=== PATIENT | male | born 2000 | race Caucasian/White ===

== ENCOUNTER → 2020-01-21 08:17 | Outpatient (BNVA) | payer MEDICAID, SELFPAY | PROVIDERS: Visit Provider Psychiatry & Neurology Psychiatry | DX: F60.3 Borderline personality disorder (principal); F43.12 Post-traumatic stress disorder, chronic; F12.20 Cannabis dependence, uncomplicated; F10.20 Alcohol dependence, uncomplicated | CPT/HCPCS: 99204 ==

== ENCOUNTER → 2020-02-11 10:18 | Outpatient (BNVA) | payer MEDICAID, SELFPAY | PROVIDERS: Visit Provider Psychiatry & Neurology Psychiatry | DX: F10.20 Alcohol dependence, uncomplicated (principal); F12.20 Cannabis dependence, uncomplicated; F43.12 Post-traumatic stress disorder, chronic; F60.3 Borderline personality disorder | CPT/HCPCS: 99213 ==

== ENCOUNTER → 2020-05-05 07:44 | Outpatient (BNVA) | payer MEDICAID, SELFPAY | PROVIDERS: Visit Provider Psychiatry & Neurology Psychiatry | DX: F43.12 Post-traumatic stress disorder, chronic (principal); F10.20 Alcohol dependence, uncomplicated; F12.20 Cannabis dependence, uncomplicated; F60.3 Borderline personality disorder | CPT/HCPCS: 99213 ==

== ENCOUNTER → 2020-05-30 10:35 | Outpatient (BNVA) | payer MEDICAID, SELFPAY | PROVIDERS: Visit Provider Nurse Practitioner | DX: J02.0 Streptococcal pharyngitis (principal); J02.9 Acute pharyngitis, unspecified; L30.9 Dermatitis, unspecified; F17.290 Nicotine dependence, other tobacco product, uncomplicated | CPT/HCPCS: 87880 ==

== ENCOUNTER 2020-07-09 00:35 | Emergency (ER) | payer MEDICAID, SELFPAY ==
[2020-07-09 00:39] VITALS: BP 133/74; PULSE 104; RESP 18; TEMP 36.4; O2SAT 95; BMI 29.8
[2020-07-09] MEDS: lidocaine 1% INJ 20 mL 5 ML INTRADERMA (00:54)
--- NOTE | 2020-07-09 01:01 | W.ED.WOUNDLC ---
HPI - Wound/Laceration General: Chief Complaint: Wound/Laceration Stated Complaint: GLASS IN FOOT Time Seen by Provider: 07/09/20 00:43 History of Present Illness: HPI narrative: Patient cut the bottom of her right foot with a piece of glass tonight Onset (ago): hour(s) Extremity Location: Right: foot Place: home Patient tetanus UTD: Yes Context: accidental Associated symptoms: Reports no associated symptoms Treatments prior to arrival: bandage Review of Systems Skin/Breast: Reports: other (Laceration bottom right foot cut on a piece of glass glass piece was intact it was in the yard. Was clean tetanus is up-to-date.) PFSH ED PFSH: Social History Smoking and tobacco status: current every day smoker e-cigarettes E-Cigarette Details: vaporizer device E-cig/vape details: 1 bottle/day- 36 mL/day Quit status (tobacco): has tried quititng Number of times tried to quit tobacco: 2 Second hand smoke exposure: No Smoking risk assessment/counseling performed?: Yes Tobacco counseling given: counseling >3 minutes Physical Exam Skin: NARRATIVE SKIN EXAM: Has superficial laceration the bottom of the right foot no active bleeding no piece of glass observed inside the wound wound irrigated and cleaned. Course Vital Signs: Vital signs: Vital Signs Temperature 97.5 F L 07/09/20 00:39 Pulse Rate 104 H 07/09/20 00:39 Respiratory Rate 18 07/09/20 00:39 Blood Pressure 133/74 07/09/20 00:39 Pulse Oximetry 95 07/09/20 00:39 Discharge Plan Discharge Patient Disposition: Home Clinical Impression: Laceration Condition: Stable Prescriptions: No Action loratadine [Claritin] 10 mg tablet 10 mg PO DAILY RF: 0 Latuda 40 mg tablet 40 mg PO DAILY Qty: 30 RF: 2 prazosin 2 mg capsule 2 mg PO .HS Qty: 30 RF: 2 azithromycin 250 mg tablet See Rx Instructions PO .COMPLEX Qty: 6 RF: 0 triamcinolone acetonide 0.1 % cream 1 applic TOPICAL BID Qty: 80 RF: 0 Discharge Orders: Discharge Order (Routine); Ordered 07/09/20 Ordered By: Al Sidhu Discharge Diet: Usual diet Discharge Activity: Resume usual activity Patient Instructions: Laceration (ED) Activity Restrictions/Additional Instructions: 0 for signs of infection keep dressing on an [place] bandage on for next 24 hours can apply bacitracin are Neosporin to the wound if needed. 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
== END 2020-07-09 01:26 | disposition home or self-care (01) ==
PROVIDERS: Emergency Provider Nurse Practitioner Family
DX: S91.311A Laceration without foreign body, right foot, initial encounter (principal); F17.290 Nicotine dependence, other tobacco product, uncomplicated; W25.XXXA Contact with sharp glass, initial encounter
CPT/HCPCS: 12345; 99281; 99282

== ENCOUNTER → 2020-12-16 08:41 | Outpatient (BNVA) | payer MEDICAID, SELFPAY | PROVIDERS: Visit Provider Psychiatry & Neurology Psychiatry | DX: F43.12 Post-traumatic stress disorder, chronic (principal); F60.3 Borderline personality disorder; F10.20 Alcohol dependence, uncomplicated; F12.20 Cannabis dependence, uncomplicated | CPT/HCPCS: 99213 ==

== ENCOUNTER → 2021-01-27 08:03 | Outpatient (BNVA) | payer MEDICAID, SELFPAY | PROVIDERS: Visit Provider Psychiatry & Neurology Psychiatry | DX: F43.12 Post-traumatic stress disorder, chronic (principal); F10.20 Alcohol dependence, uncomplicated; F12.20 Cannabis dependence, uncomplicated; F60.3 Borderline personality disorder | CPT/HCPCS: 99214 ==

== ENCOUNTER 2021-08-28 11:34 | Emergency (ER) | payer MEDICAID, SELFPAY ==
--- NOTE | 2021-08-28 12:06 | XR_ITS ---
WS: [id number] Exam: XR chest 1V portable [id number] Date/Time of Exam: 08/28/2021 12:22 PM Reason For Exam: cough and fever Comparison 07/27/2019 Findings: The lungs are clear and fully expanded. Costophrenic angles are sharp. No infiltrates. Bronchovascula r relief appears normal. Cardiac silhouette is unremarkable. Bony elements are intact. XR/XR chest 1V portable [id number] IMPRESSION: Unremarkable chest radiograph.
[2021-08-28 12:15] VITALS: BP 117/73; PULSE 82; RESP 16; TEMP 37.1; O2SAT 97; BMI 34.7
--- NOTE | 2021-08-28 16:18 | W.ED.URI ---
HPI - URI/Sore Throat General: Chief Complaint: Upper Respiratory Infection Stated Complaint: TROUBLE BREATHING/COUGH/FEVER/N,V Time Seen by Provider: 08/28/21 15:39 History of Present Illness: HPI Narrative: Patient is a 20-year-old male comes to the ED with upper respiratory symptoms. His symptoms started approximately 3 days ago when he is having nasal drainage/congestion along with a productive cough. Reports a green sputum. He also reports a fever, body aches, nausea and emesis. He says his nausea and vomiting have improved and he does not currently have any nausea at this time. Associated symptoms: Reports fever(s) and nasal congestion; Deny abdominal pain, chills, chest pain, diarrhea, headache(s), nausea or vomiting Review of Systems Const: Reports: fever(s) and body aches; Denies: chills or fatigue Eyes: Denies: change in vision or eye discomfort ENMT: Reports: throat pain, nasal discharge and nasal congestion; Denies: odynophagia Card: Denies: chest pain, palpitations, edema, swelling of feet/ankles, dyspnea on exertion or orthopnea Resp: Reports: dyspnea and productive cough; Denies: non-productive cough GI: Denies: abdominal pain, nausea, vomiting, diarrhea, constipation or hematochezia : Denies: flank pain, difficulty urinating, dysuria or hematuria Musc: Denies: neck pain, back pain or extremity swelling Skin/Breast: Denies: rash or new lesions Neuro: Denies: headache(s), numbness in extremities or weakness in extremities PFS ED PFSH: Social History Smoking and tobacco status: current every day smoker e-cigarettes E-Cigarette Details: vaporizer device E-cig/vape details: 1 bottle/day- 36 mL/day Quit status (tobacco): has tried quititng Number of times tried to quit tobacco: 2 Second hand smoke exposure: No Smoking risk assessment/counseling performed?: Yes Tobacco counseling given: counseling >3 minutes Physical Exam Const: COMMON NORMALS: no acute distress, patient oriented x3 and alert GENERAL APPEARANCE: cooperative and comfortable HENMT: COMMON NORMALS: normocephalic HEAD & SCALP: normocephalic MOUTH: Normal oral and palatal mucosa present THROAT: posterior oropharynx normal and uvula midline Eye: COMMON NORMALS: Equal, round and reactive pupils present PUPIL: Yes Equal, round and reactive pupils present Neck/C-Spine: COMMON NORMALS: supple GENERAL: Yes normal visual inspection Resp: COMMON NORMALS: normal respiratory effort, No retractions, No use of accessory muscles and clear to auscultation bilaterally AUSCULTATION: clear to auscultation bilaterally and wheezes expiratory wheezes (mild throughout bilaterally) Cardio: COMMON NORMALS: regular rate, regular rhythm, S1 normal heart sound present, S2 normal heart sound present, No gallops present (Cardio), No clicks present (Cardio), No murmurs present (Cardio) and Peripheral pulses 2+ throughout RATE: regular rate RHYTHM: regular rhythm HEART SOUNDS: S1 normal heart sound present and S2 normal heart sound present PERIPHERAL PULSES: Peripheral pulses 2+ throughout GI: COMMON NORMALS: Normal to inspection, nondistended, normoactive bowel sounds present, Soft to palpation, non-tender and no masses PALPATION: Yes Soft to palpation : COMMON NORMALS: Yes no CVA tenderness BLADDER/KIDNEY EXAM: Yes no CVA tenderness Back/Pelvis: COMMON NORMALS: no CVA tenderness Extremity: COMMON NORMALS: normal to inspection Neuro: COMMON NORMALS: patient oriented x3 and moves all extremities SENSORIUM/ORIENTATION: Yes alert Skin: GENERAL SKIN EXAM: dry skin Course Vital Signs: Vital signs: Vital Signs Temperature 98.6 F 08/28/21 16:21 Pulse Rate 91 08/28/21 16:44 Respiratory Rate 18 08/28/21 16:44 Blood Pressure 115/76 08/28/21 16:21 Pulse Oximetry 97 08/28/21 16:44 MDM - URI/Sore Throat MDM Narrative: Medical decision making narrative: Pt is a 20 y/o male with URI symptoms. Vitals stable and pt is afebrile. Pt appears non toxic and in no acute distress. mild expiratory wheezing throughout lungs. cbc, cmp were unremarkable. strep negative, covid negative. chest xray showed no acute findings. pt was given an albuterol breathing treatment here in the ED. pt diagnosed with bronchitis and d/c with prescription for albuterol inhaler, prednisone, azithromycin and zofran. follow up with pcp in 5-7 days for reevaluation. return to ed precautions given. pt understood and agreed with plan. Lab Data: Attestation: I reviewed the patient's lab results. Labs: Lab Results 08/28/21 08/28/21 08/28/21 16:13 16:13 17:09 WBC 7.4 10^3/uL 10^3/ uL (4.0-10.0) RBC 5.05 10^6/uL 10^6 /uL (4.1-5.3) Hgb 16.5 g/dL g/dL (11.7-16.6) Hct 46.8 % % (42.0-52.0) MCV 92.7 fl fl (80-94) MCH 32.7 pg pg (28.0-34.0) MCHC 35.3 g/dL g/dL (30.0-36.0) RDW 12.6 % % (12.1-15.1) Plt Count 285 10^3/cmm 10^3 /cmm (130-400) MPV 9.5 fL fL (7.4-10.4) Neut % (Auto) 64.5 % % Lymph % (Auto) 14.9 % % [place] % (Auto) 15.1 % % Eos % (Auto) 4.0 % % Baso % (Auto) 1.2 % % Neut # (Auto) 4.80 10^3/uL 10^3 /uL (1.8-7.7) Lymph # (Auto) 1.1 10^3/uL 10^3/ uL (0.8-4.8) [place] # (Auto) 1.1 10^3/uL H 10^ 3/uL (0.2-0.9) Eos # (Auto) 0.3 10^3/uL 10^3/ uL (0.0-0.8) Baso # (Auto) 0.1 10^3/uL 10^3/ uL (0.0-0.1) Nucleated RBC % (a uto) 0 % % Nucleated RBCs # 0.0 /100WBC /100W BC Sodium 136 mmol/L mmol/L (136-145) Potassium 3.4 mmol/L L mmol /L (3.5-5.1) Chloride 98 mmol/L mmol/L (98-107) Carbon Dioxide 26 mmol/L mmol/L (22-29) Anion Gap 15.4 (5-19) BUN 8 mg/dL mg/dL (6-20) Creatinine 0.8 mg/dL mg/dL (0.7-1.2) GFR Calculation 120.9 mL/min mL/m in (90-130) Glucose 141 mg/dL H mg/dL (65-115) Calculated Osmolal ity 283 mOsm/kg L mOs m/kg (285-295) Calcium 9.1 mg/dL mg/dL (8.5-10.5) Total Bilirubin 0.7 mg/dL mg/dL (0.15-1.2) AST 16 U/L U/L (0-40) ALT 26 U/L U/L (0-41) Alkaline Phosphata se 94 IU/L IU/L (40-130) Total Protein 7.7 g/dL g/dL (6.6-8.7) Albumin 4.5 g/dL g/dL (3.5-5.2) Globulin 3.2 g/dL g/dL (1.3-4.6) Lipase 20 U/L U/L (13-60) SARS-CoV-2 Ag (Rap id) Group A Strep Rapi d Negative (Negative) 08/28/21 17:09 WBC RBC Hgb Hct MCV MCH MCHC RDW Plt Count MPV Neut % (Auto) Lymph % (Auto) [place] % (Auto) Eos % (Auto) Baso % (Auto) Neut # (Auto) Lymph # (Auto) [place] # (Auto) Eos # (Auto) Baso # (Auto) Nucleated RBC % (a uto) Nucleated RBCs # Sodium Potassium Chloride Carbon Dioxide Anion Gap BUN Creatinine GFR Calculation Glucose Calculated Osmolal ity Calcium Total Bilirubin AST ALT Alkaline Phosphata se Total Protein Albumin Globulin Lipase SARS-CoV-2 Ag (Rap id) Negative (Negative) Group A Strep Rapi d Imaging Data^: CXR: Attestation: I personally reviewed and interpreted this imaging study as follows: Radiologist's impression: [address] [address] XRay Report Signed Patient: Jose Garcia Unit #: [id number] : 2000 Age/Sex: 20 / M ADM Date: 08/28/21 Loc: ER Room/Bed: Attending Dr: Ordering Provider/Ordering MD: Gumaro Dhaliwal Date of Service: 08/28/21 Procedure(s): XR chest 1V portable [id number] Accession Number(s): [id number] Report Number: [id number] WS: [id number] Exam: XR chest 1V portable [id number] Date/Time of Exam: 08/28/2021 12:22 PM Reason For Exam: cough and fever Comparison 07/27/2019 Findings: The lungs are clear and fully expanded. Costophrenic angles are sharp. No infiltrates. Bronchovascular relief appears normal. Cardiac silhouette is unremarkable. Bony elements are intact. XR/XR chest 1V portable [id number] IMPRESSION: Unremarkable chest radiograph. Dictated By: Humza Shepherd DO Signed By: Humza Shepherd DO Signed Date/Time: 08/28/21 1233 DD/ 1233 Discharge Plan Discharge Patient Disposition: Home Clinical Impression: Bronchitis Condition: Stable Prescriptions: New albuterol sulfate 90 mcg/actuation HFA aerosol inhaler 2 inh inhalation Q6H PRN (Reason: shortness of breath or wheezing) Qty: 8.5 RF: 0 Medrol (Gerard) 4 mg tablets,dose pack See Rx Instructions .ROUTE .COMPLEX Qty: 21 RF: 0 azithromycin 250 mg tablet See Rx Instructions .ROUTE .COMPLEX Qty: 6 RF: 0 Zofran 4 mg tablet 4 mg PO Q8H PRN (Reason: nausea and vomiting) Qty: 10 RF: 0 Tessalon Perles 100 mg capsule 100 mg PO TID PRN (Reason: cough) Qty: 10 RF: 0 No Action loratadine [Claritin] 10 mg tablet 10 mg PO DAILY RF: 0 B-complex with vitamin C Tablet Extended Release 1 tab PO DAILY RF: 0 triamcinolone acetonide 0.1 % cream 1 applic TOPICAL BID Qty: 80 RF: 0 duloxetine [Cymbalta] 60 mg capsule,delayed release(DR/EC) 60 mg PO DAILY Qty: 30 RF: 2 prazosin 2 mg capsule 4 mg PO .HS Qty: 60 RF: 2 ondansetron 4 mg tablet,disintegrating 4 mg PO Q6H PRN (Reason: nausea and vomiting) Qty: 12 RF: 0 Discharge Orders: Discharge ED (Routine); Ordered 08/28/21 Ordered By: Gumaro Dhaliwal Discharge Diet: Regular Discharge Activity: Increase activity as tolerated Patient Instructions: Acute Bronchitis (ED) Activity Restrictions/Additional Instructions: Follow up with PCP in 7-10 days for reevaluation. Take medications as prescribed. Drink plenty of fluids. Take OTC tylenol or motrin for fevers. Return to ED if worsening symptoms. 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
[2021-08-28 16:21] VITALS: BP 115/76; PULSE 81; TEMP 37; O2SAT 99
[2021-08-28 16:24] LABS: Basophils # 0.1 10^3/uL (0.0-0.1); Basophils % 1.2 %; Eosinophils # 0.3 10^3/uL (0.0-0.8); Hematocrit 46.8 % (42.0-52.0); Hemoglobin 16.5 g/dL (11.7-16.6); Lymphocytes # 1.1 10^3/uL (0.8-4.8); Lymphocytes % 14.9 %; Mean Corpuscular HGB Conc 35.3 g/dL (30.0-36.0); Mean Corpuscular Hemoglobin 32.7 pg (28.0-34.0); Mean Corpuscular Volume 92.7 fl (80-94); Mean Platelet Volume 9.5 fL (7.4-10.4); Monocytes # 1.1 10^3/uL (0.2-0.9); Monocytes % 15.1 %; Neutrophils % 64.5 %; Nucleated Red Blood Cells % 0 %; Platelet Count 285 10^3/cmm (130-400); Red Blood Count 5.05 10^6/uL (4.1-5.3); Red Cell Distribution Width 12.6 % (12.1-15.1); White Blood Count 7.4 10^3/uL (4.0-10.0)
[2021-08-28 16:44] VITALS: PULSE 91; RESP 18; O2SAT 97
[2021-08-28 16:50] LABS: Alanine Aminotransferase 26 U/L (0-41); Albumin Level 4.5 g/dL (3.5-5.2); Alkaline Phosphatase 94 IU/L (40-130); Anion Gap 15.4 (5-19); Aspartate Amino Transferase 16 U/L (0-40); Blood Urea Nitrogen 8 mg/dL (6-20); Calcium 9.1 mg/dL (8.5-10.5); Carbon Dioxide 26 mmol/L (22-29); Chloride 98 mmol/L (98-107); Globulin 3.2 g/dL (1.3-4.6); Glomerular Filtration Rate 120.9 mL/min (90-130); Glucose 141 mg/dL (65-115); Lipase 20 U/L (13-60); Osmolality Calculated 283 mOsm/kg (285-295); Potassium 3.4 mmol/L (3.5-5.1); Sodium 136 mmol/L (136-145); Total Bilirubin 0.7 mg/dL (0.15-1.2); Total Protein 7.7 g/dL (6.6-8.7)
[2021-08-28] MEDS: albuterol 8 gm MDI 2 PUFF INHALATION (16:50)
[2021-08-28 17:31] LABS: Rapid Strep A Test Negative (Negative)
[2021-08-28 17:52] LABS: SARS Covid-2 Antigen Negative (Negative)
== END 2021-08-28 18:10 | disposition home or self-care (01) ==
PROVIDERS: Emergency Provider Physician Assistant
DX: J40 Bronchitis, not specified as acute or chronic (principal); F17.290 Nicotine dependence, other tobacco product, uncomplicated; Z20.822 Contact with and (suspected) exposure to COVID-19
CPT/HCPCS: 71045; 80053; 83690; 85025; 87081; 87426; 87880; 94640; 99283; J3535

== ENCOUNTER 2022-06-14 11:38 | Emergency (ER) | payer MEDICAID, SELFPAY ==
[2022-06-14 11:47] VITALS: BP 147/73; PULSE 56; RESP 16; TEMP 36.7; O2SAT 97
--- NOTE | 2022-06-14 11:57 | W.ED.EXTPRO ---
HPI - Extremity Problem General: Chief complaint: Extremity Injury, Upper Stated complaint: right arm injury Time Seen by Provider: 06/14/22 11:43 Source: patient Mode of arrival: ambulatory Limitations: no limitations History of Present Illness: Patient is a 21-year-old male presents to ED today with a complaint of right shoulder pain over the past 3 days. Patient states over the past week he has been moving a lot of heavy boxes in his apartment and thinks he may have irritated or strained his shoulder. He does complain of intermittent numbness/tingling to his right upper extremity. Pain seems to be worse with range of motion above shoulder level . Not having any neck pain. He has not noticed any color/temp/swelling to his upper extremity. MD Complaint: joint pain Onset (ago): day(s) (3d ago) Location: right and upper extremity Radiation: distal Exacerbating factors: range of motion Associated symptoms: Deny chest pain or fever(s) Review of Systems Const: Denies: fever(s), chills, body aches, fatigue or malaise Card: Denies: chest pain Resp: Denies: dyspnea GI: Denies: abdominal pain Musc: Reports: joint pain (R shoulder); Denies: neck pain, joint swelling, joint redness or joint warmth Neuro: Reports: sensory changes (intermittent tingling to R arm ); Denies: headache(s) or weakness in extremities PFSH ED PFSH: Social History Smoking and tobacco status: current every day smoker e-cigarettes E-Cigarette Details: vaporizer device E-cig/vape details: 1 bottle/day- 36 mL/day Quit status (tobacco): has tried quititng Number of times tried to quit tobacco: 2 Second hand smoke exposure: No Smoking risk assessment/counseling performed?: Yes Tobacco counseling given: counseling >3 minutes Physical Exam Const: COMMON NORMALS: no acute distress, average body habitus, patient oriented x3, no limitations, alert and well nourished ORIENTATION/CONSCIOUSNESS: Yes awake, Yes oriented to person, Yes oriented to place and Yes oriented to time HENMT: COMMON NORMALS: normocephalic and atraumatic HEAD & SCALP: normocephalic and atraumatic Neck/C-Spine: COMMON NORMALS: full ROM, no lymphadenopathy, supple and no meningeal signs GENERAL: Yes normal visual inspection CERVICAL SPINE: Yes cervical ROM normal, No pain with cervical ROM, No Cervical spine tenderness, No step off deformity, No Paracervical muscle tenderness, No Paracervical spasm and No Trapezius muscle tenderness Chest: COMMONS NORMALS: normal inspection of the chest and normal palpation of entire chest wall Resp: COMMON NORMALS: normal respiratory effort and clear to auscultation bilaterally AUSCULTATION: clear to auscultation bilaterally Cardio: COMMON NORMALS: regular rate and regular rhythm RATE: regular rate RHYTHM: regular rhythm Back/Pelvis: COMMON NORMALS: thoracic and lumbar spine normal to inspection, no thoracic nor lumbar tenderness and thoraco-lumbar ROM normal THORACIC SPINE/UPPER BACK: Yes thoracic ROM normal LUMBAR SPINE/LOWER BACK: Yes lumbar ROM normal Extremity: COMMON NORMALS: normal to inspection, capillary refill normal, no joint enlargement and no clubbing, cyanosis or edema GENERAL: Yes normal exam except as noted RIGHT UPPER EXTREMITY: Yes shoulder joint (TTP overlying posterior shoulder/scapula) Right shoulder: Yes Right shoulder joint ROM exam (full IR/ER; has pain with arc maneuvers; pain past 90 deg flex/abduction) and Yes Right shoulder joint neurovascular exam (normal; he reports sensory as same bilaterally) Neuro: ESTELA COMA SCALE: document GCS findings [place] coma scale eye opening: Spontaneous [place] coma scale verbal response: Orientated [place] coma scale motor response: Obey commands Estela coma scale total score: 15 COMMON NORMALS: patient oriented x3, moves all extremities, no focal motor deficits and no sensory deficits noted SENSORIUM/ORIENTATION: Yes alert, Yes oriented to person, Yes oriented to place and Yes oriented to time MENINGEAL SIGNS: Yes no meningeal signs Skin: COMMON NORMALS: no rashes or lesions noted GENERAL SKIN EXAM: no rashes or lesions noted TRAUMA: no lacerations or abrasions Course Vital Signs: Vital signs: Vital Signs Temperature 98.1 F 06/14/22 11:47 Pulse Rate 56 L 06/14/22 11:47 Respiratory Rate 16 06/14/22 11:47 Blood Pressure 147/73 06/14/22 11:47 Pulse Oximetry 97 06/14/22 11:47 MDM - Extremity (Nontraumatic) Medical Decision Making Patient has not had any direct injury or trauma to the shoulder. I think XRs at this time would be low yield and ultimately would not change much management. He has been using anti-inflammatories at home so I recommend he continue this. Discussed alternating ice and heat we will place him on a Medrol dose pack. I recommend he follow-up with primary care in 2 weeks if symptoms do not seem to be improving. Discharge Plan Discharge Patient Disposition: Home Clinical Impression: Muscle strain of right scapular region Qualifiers: Encounter type: initial encounter Qualified Code(s): S46.911A - Strain of unspecified muscle, fascia and tendon at shoulder and upper arm level, right arm, initial encounter Condition: Stable Prescriptions: New Medrol (Gerard) 4 mg tablets,dose pack See Rx Instructions .ROUTE .COMPLEX Qty: 21 0RF Rx Instructions: orally per package directions No Action loratadine [Claritin] 10 mg tablet 10 mg PO DAILY 0RF B-complex with vitamin C Tablet Extended Release 1 tab PO DAILY 0RF triamcinolone acetonide 0.1 % cream 1 applic TOPICAL BID Qty: 80 0RF duloxetine [Cymbalta] 60 mg capsule,delayed release(DR/EC) 60 mg PO DAILY Qty: 30 2RF prazosin 2 mg capsule 4 mg PO .HS Qty: 60 2RF ondansetron 4 mg tablet,disintegrating 4 mg PO Q6H PRN (Reason: nausea and vomiting) Qty: 12 0RF Rx Instructions: 340b please albuterol sulfate 90 mcg/actuation HFA aerosol inhaler 2 inh inhalation Q6H PRN (Reason: shortness of breath or wheezing) Qty: 8.5 0RF Medrol (Gerard) 4 mg tablets,dose pack See Rx Instructions .ROUTE .COMPLEX Qty: 21 0RF Rx Instructions: orally per package directions azithromycin 250 mg tablet See Rx Instructions .ROUTE .COMPLEX Qty: 6 0RF Rx Instructions: take 500 mg today (day 1), then 250 mg for 4 days (days 2-5) Zofran 4 mg tablet 4 mg PO Q8H PRN (Reason: nausea and vomiting) Qty: 10 0RF Tessalon Perles 100 mg capsule 100 mg PO TID PRN (Reason: cough) Qty: 10 0RF Discharge Orders: Discharge ED (Routine); Ordered 06/14/22 Ordered By: [place] Daily Coding 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
== END 2022-06-14 12:07 | disposition home or self-care (01) ==
PROVIDERS: Emergency Provider Physician Assistant
DX: S46.911A Strain of unspecified muscle, fascia and tendon at shoulder and upper arm level, right arm, initial encounter (principal); F17.290 Nicotine dependence, other tobacco product, uncomplicated; X50.0XXA Overexertion from strenuous movement or load, initial encounter
CPT/HCPCS: 99283

== ENCOUNTER 2023-08-25 22:22 | Emergency (ER) | payer MEDICAID, SELFPAY ==
[2023-08-25 22:26] VITALS: BP 124/75; PULSE 65; RESP 16; TEMP 36.6; O2SAT 98; BMI 27.9
[2023-08-25 23:09] LABS: Basophils # 0.1 10^3/uL (0.0-0.1); Basophils % 0.9 %; Eosinophils # 0.3 10^3/uL (0.0-0.8); Eosinophils % 3.5 %; Hematocrit 42.7 % (37-53); Lymphocytes # 3.2 10^3/uL (0.8-4.8); Lymphocytes % 32.6 %; Mean Corpuscular HGB Conc 36.1 g/dL (30-55); Mean Corpuscular Volume 91.4 fl (82-101); Mean Platelet Volume 9.6 fL (7.4-10.4); Monocytes # 0.9 10^3/uL (0.2-0.9); Monocytes % 9.2 %; Neutrophils # 5.19 10^3/uL (1.8-7.7); Neutrophils % 53.5 %; Nucleated Red Blood Cells % 0 %; Platelet Count 325 10^3/cmm (157-399); Red Blood Count 4.67 10^6/uL (3.85-5.65); White Blood Count 9.71 10^3/uL (3.29-11.43)
--- NOTE | 2023-08-25 23:11 | W.ED.NAVMDI ---
HPI - Nausea/Vomiting/Diarrhea General: Chief complaint: Nausea/Vomiting/Diarrhea Stated complaint: n/v Time Seen by Provider: 08/25/23 22:41 Source: patient Mode of arrival: ambulatory Limitations: no limitations History of Present Illness: Patient reports to the emergency department today for evaluation treatment of multiple episodes of vomiting starting earlier this morning. Patient reports it is possible he got some bad food and suspects the possibility of foodborne illness causing his symptoms. Patient reports 4-5 episodes of vomiting starting approximately 5 AM but resolving around 2 PM this afternoon. He had no diarrhea. No fever. No other respiratory symptoms similar to COVID. No other similarly ill to his knowledge. 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 Review of Systems General: Reports: 10 or more systems reviewed and unremarkable except in HPI and below PFSH ED PFSH: Social History Smoking and tobacco status: current every day smoker e-cigarettes E-Cigarette Details: vaporizer device E-cig/vape details: 1 bottle/day- 36 mL/day Quit status (tobacco): has tried quititng Number of times tried to quit tobacco: 2 Second hand smoke exposure: No Smoking risk assessment/counseling performed?: Yes Tobacco counseling given: counseling >3 minutes Physical Exam Const: COMMON NORMALS: no acute distress, patient oriented x3 and alert HENMT: COMMON NORMALS: normocephalic, atraumatic, hearing grossly normal bilaterally and moist oral mucous membranes HEAD & SCALP: normocephalic and atraumatic Eye: COMMON NORMALS: Equal, round and reactive pupils present, EOMs intact bilaterally and conjunctivae normal CONJUNCTIVA: Yes conjunctivae normal PUPIL: Yes Equal, round and reactive pupils present Neck/C-Spine: COMMON NORMALS: full ROM and no JVD Lymph: LYMPHATIC: no lymphadenopathy noted Resp: COMMON NORMALS: normal respiratory effort, No retractions, No use of accessory muscles and clear to auscultation bilaterally AUSCULTATION: clear to auscultation bilaterally Cardio: COMMON NORMALS: no JVD, regular rate and regular rhythm RATE: regular rate RHYTHM: regular rhythm GI: COMMON NORMALS: Normal to inspection, nondistended, normoactive bowel sounds present, Soft to palpation and non-tender PALPATION: Yes Soft to palpation : COMMON NORMALS: Yes no CVA tenderness BLADDER/KIDNEY EXAM: Yes no CVA tenderness Back/Pelvis: COMMON NORMALS: no CVA tenderness, no thoracic nor lumbar tenderness and thoraco-lumbar ROM normal Extremity: COMMON NORMALS: normal to inspection, full ROM and capillary refill normal Neuro: COMMON NORMALS: patient oriented x3 SENSORIUM/ORIENTATION: Yes alert Psych: COMMON NORMALS: mental status grossly normal, Normal thought process present, cooperative, normal affect and activity/motor behavior normal THOUGHT PROCESS: Normal thought process present Skin: COMMON NORMALS: no rashes or lesions noted and no wounds GENERAL SKIN EXAM: no rashes or lesions noted Course Vital Signs: Vital signs: Vital Signs Temperature 97.8 F 08/25/23 22:26 Pulse Rate 65 08/25/23 22:26 Respiratory Rate 16 08/25/23 22:26 Blood Pressure 124/75 08/25/23 22:26 Pulse Oximetry 98 08/25/23 22:26 Oxygen Delivery Me thod Room Air 08/25/23 22:26 MDM - Nausea/Vomiting/Diarrhea Medical Decision Making Patient's lab work is unremarkable today. No signs of dehydration, elevated white blood cell count, or electrolyte abnormality. Patient received p.o. challenge here in the emergency department and passed without difficulty. Went over return precautions for return or worsening of symptoms. Encouraged him to push fluids. Did provide him some antinausea medication for the next few days if necessary but, at this time as he is afebrile, has not vomited in over 12 hours, and has no acute concerns on lab work, would agree he can return to work however, did provide him a work note to excuse him from today as it is extremely early in the morning for his discharge and he is supposed to be at work in few hours. Patient verbalized understanding and agreement to treatment plan. Differential Diagnosis Likely gastroenteritis; Unlikely food poisoning, clostridium difficile infection, drug-induced nausea and vomiting or dehydration Lab Data 08/25/23 23:00 08/25/23 23:00 Laboratory Results WBC 9.71 10^3/uL (3.29-11.43) 08/25/23 23:00 RBC 4.67 10^6/uL (3.85-5.65) 08/25/23 23:00 Hgb 15.40 g/dL (11.27-16.99) 08/25/23 23:00 Hct 42.7 % (37-53) 08/25/23 23:00 MCV 91.4 fl (82-101) 08/25/23 23:00 MCH 33.0 pg (27-33) 08/25/23 23:00 MCHC 36.1 g/dL (30-55) 08/25/23 23:00 RDW 12.0 % (12.1-15.1) L 08/25/23 23:00 Plt Count 325 10^3/cmm (157-399) 08/25/23 23:00 MPV 9.6 fL (7.4-10.4) 08/25/23 23:00 Neut % (Auto) 53.5 % 08/25/23 23:00 Lymph % (Auto) 32.6 % 08/25/23 23:00 [place] % (Auto) 9.2 % 08/25/23 23:00 Eos % (Auto) 3.5 % 08/25/23 23:00 Baso % (Auto) 0.9 % 08/25/23 23:00 Neut # (Auto) 5.19 10^3/uL (1.8-7.7) 08/25/23 23:00 Lymph # (Auto) 3.2 10^3/uL (0.8-4.8) 08/25/23 23:00 [place] # (Auto) 0.9 10^3/uL (0.2-0.9) 08/25/23 23:00 Eos # (Auto) 0.3 10^3/uL (0.0-0.8) 08/25/23 23:00 Baso # (Auto) 0.1 10^3/uL (0.0-0.1) 08/25/23 23:00 Nucleated RBC % (auto) 0 % 08/25/23 23:00 Nucleated RBCs # 0.0 /100WBC 08/25/23 23:00 Sodium 139 mmol/L (136-145) 08/25/23 23:00 Potassium 4.5 mmol/L (3.5-5.1) 08/25/23 23:00 Chloride 103 mmol/L (98-107) 08/25/23 23:00 Carbon Dioxide 28 mmol/L (22-29) 08/25/23 23:00 Anion Gap 12.5 (5-19) 08/25/23 23:00 BUN 13 mg/dL (6-20) 08/25/23 23:00 Creatinine 0.7 mg/dL (0.7-1.2) 08/25/23 23:00 GFR Calculation 138.6 mL/min (90-130) H 08/25/23 23:00 Glucose 93 mg/dL (65-115) 08/25/23 23:00 Calculated Osmolality 288 mOsm/kg (285-295) 08/25/23 23:00 Calcium 9.3 mg/dL (8.5-10.5) 08/25/23 23:00 Total Bilirubin 0.6 mg/dL (0.15-1.2) 08/25/23 23:00 AST 16 U/L (0-40) 08/25/23 23:00 ALT 16 U/L (0-41) 08/25/23 23:00 Alkaline Phosphatase 76 U/L (40-130) 08/25/23 23:00 Total Protein 7.4 g/dL (6.6-8.7) 08/25/23 23:00 Albumin 4.6 g/dL (3.5-5.2) 08/25/23 23:00 Globulin 2.8 g/dL (1.3-4.6) 08/25/23 23:00 No radiology studies performed this visit Discharge Plan Discharge Patient Disposition: Home Clinical Impression: Gastroenteritis Condition: Stable Prescriptions: New ondansetron 4 mg tablet,disintegrating 4 mg PO Q8H 5 Days Qty: 15 0RF No Action loratadine [Claritin] 10 mg tablet 10 mg PO DAILY B-complex with vitamin C Tablet Extended Release 1 tab PO DAILY triamcinolone acetonide 0.1 % cream 1 applic TOPICAL BID Qty: 80 0RF duloxetine [Cymbalta] 60 mg capsule,delayed release(DR/EC) 60 mg PO DAILY Qty: 30 2RF prazosin 2 mg capsule 4 mg PO .HS Qty: 60 2RF ondansetron 4 mg tablet,disintegrating 4 mg PO Q6H PRN (Reason: nausea and vomiting) Qty: 12 0RF Rx Instructions: 340b please albuterol sulfate 90 mcg/actuation HFA aerosol inhaler 2 inh inhalation Q6H PRN (Reason: shortness of breath or wheezing) Qty: 8.5 0RF Medrol (Gerard) 4 mg tablets,dose pack See Rx Instructions .ROUTE .COMPLEX Qty: 21 0RF Rx Instructions: orally per package directions azithromycin 250 mg tablet See Rx Instructions .ROUTE .COMPLEX Qty: 6 0RF Rx Instructions: take 500 mg today (day 1), then 250 mg for 4 days (days 2-5) Zofran 4 mg tablet 4 mg PO Q8H PRN (Reason: nausea and vomiting) Qty: 10 0RF Tessalon Perles 100 mg capsule 100 mg PO TID PRN (Reason: cough) Qty: 10 0RF Medrol (Gerard) 4 mg tablets,dose pack See Rx Instructions .ROUTE .COMPLEX Qty: 21 0RF Rx Instructions: orally per package directions Discharge Orders: Discharge ED (Routine); Ordered 08/26/23 Ordered By: Shantal Brandt Discharge Diet: Advance as tolerated Discharge Activity: Increase activity as tolerated Patient Instructions: Gastroenteritis (ED) Activity Restrictions/Additional Instructions: Labs today show no acute concerns for an acute bacterial infection, dehydration, or electrolyte imbalance. For that reason, since you have had no active vomiting now for almost 12 hours, I do think it is okay for you to return to work. I provided you some antinausea medication should nausea and vomiting return. Nausea and vomiting return and you are unable to tolerate fluids to stay hydrated we do recommend to be seen and reevaluated. If you develop severe abdominal pains or spike a fever we also recommend being seen. Otherwise, continue to adhere to good handwashing practices and push her fluids. Stand Alone Forms: Work/School Release Coding Level of Care Code ED Health Science Instructor for Milton Delarosa
[2023-08-25 23:31] LABS: Alanine Aminotransferase 16 U/L (0-41); Albumin Level 4.6 g/dL (3.5-5.2); Alkaline Phosphatase 76 U/L (40-130); Aspartate Amino Transferase 16 U/L (0-40); Blood Urea Nitrogen 13 mg/dL (6-20); Calcium 9.3 mg/dL (8.5-10.5); Carbon Dioxide 28 mmol/L (22-29); Chloride 103 mmol/L (98-107); Globulin 2.8 g/dL (1.3-4.6); Glomerular Filtration Rate 138.6 mL/min (90-130); Glucose 93 mg/dL (65-115); Osmolality Calculated 288 mOsm/kg (285-295); Sodium 139 mmol/L (136-145); Total Bilirubin 0.6 mg/dL (0.15-1.2); Total Protein 7.4 g/dL (6.6-8.7)
[2023-08-25 23:35] LABS: Anion Gap 12.5 (5-19); Potassium 4.5 mmol/L (3.5-5.1)
[2023-08-25] MEDS: metoclopramide 5 mg/mL SDV 2 mL 10 MG IVP (23:36)
[2023-08-25] MEDS: sodium chloride 0.9% 1,000 ML 999 ML IV (23:36)
== END 2023-08-26 00:42 | disposition home or self-care (01) ==
PROVIDERS: Emergency Provider Physician Assistant
DX: K52.9 Noninfective gastroenteritis and colitis, unspecified (principal); F17.290 Nicotine dependence, other tobacco product, uncomplicated
CPT/HCPCS: 80053; 85025; 96361; 96374; 99284; J2765; J7030

== ENCOUNTER → 2024-01-15 11:03 | Outpatient (BNVA) | payer MEDICAID, SELFPAY | PROVIDERS: Visit Provider Nurse Practitioner Family | DX: J06.9 Acute upper respiratory infection, unspecified (principal) | CPT/HCPCS: 87400 ==

== ENCOUNTER 2024-01-31 12:38 | Outpatient (CLI) | payer MEDICAID, SELFPAY ==
--- NOTE | 2024-01-31 12:42 | XR_ITS ---
WS: [id number] Exam: XR hand RT min 3V* [id number] Date/Time of Exam: 01/31/2024 1:04 PM Reason For Exam: PAIN IN R HAND No acute fracture or dislocation. No soft tissue foreign bodies are identified. The joints are preser dianna. There may be old fracture deformity of the second metacarpal. IMPRESSION: 1. No acute fracture or other significant finding.
== END 2024-01-31 12:39 | disposition home or self-care (01) ==
LOC: RAD 12:40
PROVIDERS: Visit Provider Radiology Diagnostic Radiology
DX: M79.641 Pain in right hand (principal)
CPT/HCPCS: 73130

== ENCOUNTER 2024-06-18 18:38 | Emergency (ER) | payer MEDICAID, SELFPAY ==
[2024-06-18 18:39] VITALS: BP 118/68; PULSE 57; RESP 14; TEMP 37.1; O2SAT 99
--- NOTE | 2024-06-18 18:57 | W.ED.EAR ---
HPI - Ear Problem General: Chief complaint: Ear Stated complaint: Left ear pain, N/V Time Seen by Provider: 06/18/24 18:43 History of Present Illness: 23-year-old comes in today for complaints of left ear pain. Patient reports sinus congestion and headache also starting. Patient reports about noon his left ear started hurting worse with increased discomfort. Patient appears mildly unwell but not toxic. Patient appears in moderate pain. Associated symptoms: Reports ear or mastoid pain Review of Systems General: Reports: 10 or more systems reviewed and unremarkable except in HPI and below ENMT: Reports: ear or mastoid pain PFSH ED PFSH: Social History Smoking and tobacco/nicotine status: current every day tobacco/nicotine user e-cigarettes E-Cigarette Details: vaporizer device E-cig/vape details: 1 bottle/day- 36 mL/day Quit status (tobacco/nicotine): has tried quititng Number of times tried to quit tobacco: 2 Second hand smoke exposure: No Physical Exam Const: COMMON NORMALS: alert HENMT: COMMON NORMALS: normocephalic HEAD & SCALP: normocephalic TYMPANIC MEMBRANE: TM normal on the right and TM abnormal TM laterality: left Details: effusion and erythematous Neck/C-Spine: COMMON NORMALS: full ROM Resp: COMMON NORMALS: normal respiratory effort and clear to auscultation bilaterally AUSCULTATION: clear to auscultation bilaterally Cardio: COMMON NORMALS: regular rate and regular rhythm RATE: regular rate RHYTHM: regular rhythm GI: COMMON NORMALS: Soft to palpation and non-tender PALPATION: Yes Soft to palpation Back/Pelvis: COMMON NORMALS: thoracic and lumbar spine normal to inspection Extremity: COMMON NORMALS: full ROM Neuro: SENSORIUM/ORIENTATION: Yes alert Skin: COMMON NORMALS: turgor normal GENERAL SKIN EXAM: turgor normal Course Vital Signs: Vital signs: Vital Signs Temperature 98.8 F 06/18/24 18:39 Pulse Rate 57 L 06/18/24 18:39 Respiratory Rate 14 06/18/24 18:39 Blood Pressure 118/68 06/18/24 18:39 Pulse Oximetry 99 06/18/24 18:39 Oxygen Delivery Me thod Room Air 06/18/24 18:39 MDM - Ear Medical Decision Making 23-year-old comes in today for complaints of left ear pain. On exam left tympanic membrane is erythematous with air-fluid levels behind it. Right tympanic membrane is slightly erythematous. Patient has nasal drainage and sinus discomfort. Vital signs are normal. Differential diagnosis includes not limited to otitis media, rhinosinusitis, eustachian tube dysfunction. Reviewed exam with patient with recommendation for treatment with antibiotic. Patient reports understanding of care plan need for follow-up or return to the ER. No radiology studies performed this visit Discharge Plan Discharge Patient Disposition: Home Clinical Impression: Otitis media Qualifiers: Otitis media type: suppurative Chronicity: acute Laterality: left Recurrence: not specified as recurrent Spontaneous tympanic membrane rupture: without spontaneous rupture Qualified Code(s): H66.002 - Acute suppurative otitis media without spontaneous rupture of ear drum, left ear Condition: Stable Prescriptions: New doxycycline hyclate 100 mg capsule 100 mg PO BID 7 Days Qty: 14 0RF No Action ondansetron 8 mg tablet,disintegrating 8 mg PO Q8H PRN (Reason: nausea and vomiting) Qty: 10 0RF Discharge Orders: Discharge ED (Routine); Ordered 06/18/24 Ordered By: Jose Jung Discharge Diet: Usual diet Discharge Activity: Increase activity as tolerated Patient Instructions: Ear Infection (ED) Activity Restrictions/Additional Instructions: Home and rest. Use acetaminophen and/or ibuprofen for pain. Drink plenty of water with medication. Take doxycycline 100 mg twice a day for 7 days for infection. Use hot packs for further pain relief. Follow-up with primary care in 1 week for recheck. Coding Level of Care Code ED Hand Slitter for Milton Delarosa
[2024-06-18] MEDS: doxycycline 100 mg Tablet PO (19:10)
[2024-06-18] MEDS: HYDROcodone-acetaminophen 5-325 mg Tablet 1 TAB PO (19:11)
[2024-06-18] MEDS: dexamethasone 4 mg Tablet 10 MG PO (19:11)
[2024-06-18 19:18] VITALS: BP 118/68; PULSE 57; RESP 14; TEMP 37.1; O2SAT 99
== END 2024-06-18 19:20 | disposition home or self-care (01) ==
PROVIDERS: Emergency Provider Nurse Practitioner Family
DX: H66.002 Acute suppurative otitis media without spontaneous rupture of ear drum, left ear (principal); F17.290 Nicotine dependence, other tobacco product, uncomplicated
CPT/HCPCS: 99283; J8540

== ENCOUNTER → 2025-05-24 09:00 | Outpatient (BNVA) | payer OTHER, SELFPAY | PROVIDERS: Visit Provider Psychiatry & Neurology Psychiatry | DX: Z79.899 Other long term (current) drug therapy (principal) | CPT/HCPCS: 80061; 83036 ==

== ENCOUNTER 2025-06-30 09:34 | Emergency (ER) | payer MEDICAID, SELFPAY ==
[2025-05-25 13:39] VITALS: BP 126/59; BMI 32.7
[2025-06-30 09:37] VITALS: BP 115/74; PULSE 95; RESP 20; TEMP 37.1; O2SAT 95
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
--- NOTE | 2025-06-30 09:54 | XR_ITS ---
WS: [id number] Right hand, 3 views, 06/30/2025 Clinical Data: trauma Comparison: Right hand, 01/31/2024 Findings: No fractures or dislocations are seen. The soft tissues are unremarkable. The joint spaces are normal XR/XR hand RT min 3V* [id number] Impression: Negative right hand.
--- NOTE | 2025-06-30 09:54 | XR_ITS ---
WS: [id number] Left hand, 3 views, Clinical Data: trauma Comparison: None. Findings: No fractures or dislocations are seen. The soft tissues are unremarkable. The joint spaces are normal XR/XR hand LT min 3V* [id number] Impression: Negative left hand.
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
[2025-06-30 10:05] LABS: Hematocrit 44.7 % (37-53); Hemoglobin 16.70 g/dL (11.27-16.99); Mean Corpuscular HGB Conc 37.4 g/dL (30-55); Mean Corpuscular Hemoglobin 33.9 pg (27-33); Mean Corpuscular Volume 90.9 fl (82-101); Nucleated Red Blood Cells % 0 %; Platelet Count 272 10^3/cmm (157-399); Red Blood Count 4.92 10^6/uL (3.85-5.65); White Blood Count 9.61 10^3/uL (3.29-11.43)
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
[2025-06-30 10:23] LABS: Alanine Aminotransferase 18 U/L (0-41); Albumin Level 4.5 g/dL (3.5-5.2); Alkaline Phosphatase 82 U/L (40-130); Anion Gap 19.6 (5-19); Aspartate Amino Transferase 17 U/L (0-40); Blood Urea Nitrogen 11 mg/dL (6-20); Calcium 9.5 mg/dL (8.5-10.5); Carbon Dioxide 22 mmol/L (22-29); Chloride 102 mmol/L (98-107); Creatinine Clr Calc Pharmacy 100.1225; Globulin 2.8 g/dL (1.3-4.6); Glucose 236 mg/dL (65-115); Osmolality Calculated 297 mOsm/kg (285-295); Potassium 3.6 mmol/L (3.5-5.1); Sodium 140 mmol/L (136-145); Total Protein 7.3 g/dL (6.6-8.7)
[2025-06-30 11:27] VITALS: BP 115/74; PULSE 65; O2SAT 95
== END 2025-06-30 11:28 | disposition home or self-care (01) ==
PROVIDERS: Emergency Provider Family Medicine
DX: Z04.71 Encounter for examination and observation following alleged adult physical abuse (principal); F17.290 Nicotine dependence, other tobacco product, uncomplicated
CPT/HCPCS: 36415; 70450; 70486; 72040; 73130; 80053; 85025; 99284